=== PATIENT | female | born 1995 | race Caucasian/White ===

== ENCOUNTER 2016-06-02 13:14 | Emergency (ER) | payer OTHER ==
[~2016-06-02] VITALS: Ht 165.1 cm; Wt 65.6 kg
[~2016-06-02 13:14] MED LIST: BENADRYL50 MG PO; CLARITIN10 M1 PO; Colace PO; KLONOPIN1 M1 PO; LEXAPRO20 MG PO; LITHIUM CARBON600 MG PO; MOTRIN800 MG PO; NAPROXEN500 MG PO; NATALCARE RX1 TABLET PO; PEN-VEE K,VEET500 MG PO; PERCOCET 10/1 TABLET PO; PERCOCET 5/31 TABLET PO; PRENATAL TABLE1 EAC3 PO; PROAIR HFA8.5 GM IH; Percocet 5/325,Endoc PO; SEROQUEL50 MG PO; SINGULAIR10 MG PO; STOOL SOFTENER100 MG PO; TYLENOL WITH C1 EACH PO; ULTRAM50 MG PO; XANAX1 MG PO
[2016-06-02 14:01] LABS: HEMATOCRIT 45.4 % (36.0-46.0); MCH 27.8 PG (29.0-34.0); MCHC 33.9 G/DL (30.0-36.0); MCV 81.9 FL (83-99); MEAN PLAT.VOLUME 10.5 uM^3 (9.5-12.4); PLATELET COUNT 355 K/uL (156-360); RBC DIS.WIDTH-SD 48.2 % (39-53); RED BLOOD COUNT 5.54 M/uL (3.80-5.20); WHITE BLOOD COUNT 14.2 K/uL (4.1-10.2)
[2016-06-02 14:26] LABS: TROP-I INTERPRETATION NEGATIVE; TROPONIN-I < 0.01 ng/mL (0.0-0.30)
[2016-06-02 14:34] LABS: CHLORIDE 105 mEq/L (99-109); POTASSIUM 3.9 mEq/L (3.7-5.4); SODIUM 138 mEq/L (136-147)
[2016-06-02 14:36] LABS: GLUCOSE 96 mg/dL (70-99)
[2016-06-02 14:37] LABS: ANION GAP 20 MEQ/L (2-14)
[2016-06-02 14:38] LABS: TOTAL BILIRUBIN 0.6 mg/dL (0.0-1.0)
[2016-06-02 14:39] LABS: ALKALINE PHOSPHATASE 78 IU/L (3-129); GFR ESTIMATE (CALCULATED) > 59 mL/min/
[2016-06-02 14:41] LABS: UREA NITROGEN (BUN) 10 mg/dL (9-23)
[2016-06-02 17:52] LABS: ADD MIUA? YES; BILIRUBIN SMALL; BLOOD NEGATIVE; COLOR YELLOW ((YELLOW)); GLUCOSE (STRIP) NEGATIVE; KETONES >=80; LEUKOCYTES SMALL; NITRITE NEGATIVE; PROTEIN (STRIP) 100; SPECIFIC GRAVITY 1.031 (1.000-1.030)
[2016-06-02 18:50] LABS: BACTERIA 1+; CASTS PRESENT /LPF; CRYSTALS NONE SEEN; EPITHELIAL CELLS NONE SEEN; HYALINE CASTS 0-5 /LPF; MUCUS NONE SEEN; UCUL ADDED? NO; WHITE BLOOD CELLS 0-5 /HPF (0-5)
[2016-06-02] MEDS ORDERED: ZOFRAN ODT4 MG PO (18:58)
[2016-06-02 20:09] LABS: CHLORIDE 104 mEq/L (99-109); POTASSIUM 3.9 mEq/L (3.7-5.4); SODIUM 135 mEq/L (136-147)
[2016-06-02 20:10] LABS: GLUCOSE 70 mg/dL (70-99)
[2016-06-02 20:12] LABS: ANION GAP 16 MEQ/L (2-14)
[2016-06-02 20:14] LABS: GFR ESTIMATE (CALCULATED) > 59 mL/min/
[2016-06-02 20:15] LABS: UREA NITROGEN (BUN) 8 mg/dL (9-23)
[2016-06-02 20:30] VITALS: BP 115/68
== END 2016-06-02 20:31 | disposition left against medical advice (07) ==
LOC: EME 13:14
PROVIDERS: Physician Assistant
DX: O21.9 Vomiting of pregnancy, unspecified (principal); O99.280 Endocrine, nutritional and metabolic diseases complicating pregnancy, unspecified trimester; E86.0 Dehydration; O99.340 Other mental disorders complicating pregnancy, unspecified trimester; F41.0 Panic disorder [episodic paroxysmal anxiety]; O99.619 Diseases of the digestive system complicating pregnancy, unspecified trimester; K08.89 Other specified disorders of teeth and supporting structures; R07.9 Chest pain, unspecified; N89.8 Other specified noninflammatory disorders of vagina; O99.330 Smoking (tobacco) complicating pregnancy, unspecified trimester; F17.200 Nicotine dependence, unspecified, uncomplicated
CPT/HCPCS: 71020; 80048 91; 80053; 81003; 84484; 84702; 85027; 93005; 99281; 99284; J2405; J7120

== ENCOUNTER → 2016-06-03 | Outpatient (CLI) | payer OTHER ==
[~2016-06-03] VITALS: Ht 165.1 cm; Wt 65.6 kg
[~2016-06-03] MED LIST changes: +ZOFRAN ODT4 MG PO
[2016-06-03 17:11] VITALS: BP 112/71
== END | disposition home or self-care (01) ==
LOC: IVINF 17:00
DX: E86.0 Dehydration (principal)
CPT/HCPCS: 96360 XU; 96361; 96374 59; J2405; J7030

== ENCOUNTER 2016-10-28 16:25 | Emergency (ER) | payer OTHER ==
[~2016-10-28] VITALS: Ht 165.1 cm; Wt 69.7 kg
[2016-10-28] MEDS ORDERED: PEN-VEE K,VEET500 MG PO (16:58)
[2016-10-28] MEDS ORDERED: LIDOCAINE20 MG/1 M5 PO (16:58)
[2016-10-28 17:26] VITALS: BP 125/80
== END 2016-10-28 17:37 | disposition home or self-care (01) ==
LOC: EME 16:25
DX: O99.619 Diseases of the digestive system complicating pregnancy, unspecified trimester (principal); K02.9 Dental caries, unspecified; O99.330 Smoking (tobacco) complicating pregnancy, unspecified trimester; F17.200 Nicotine dependence, unspecified, uncomplicated; Z3A.00 Weeks of gestation of pregnancy not specified
CPT/HCPCS: 99281; 99285

== ENCOUNTER 2016-11-30 00:49 | Outpatient (CLI) | payer OTHER ==
[~2016-11-30 00:49] MED LIST changes: +LIDOCAINE20 MG/1 M5 PO
[2016-11-30 01:09] VITALS: BP 119/75
[2016-11-30] MEDS ORDERED: PRENATAL TABLE1 EAC3 PO (01:19)
[2016-11-30] MEDS ORDERED: BENADRYL50 MG PO (01:20)
[2016-11-30] MEDS ORDERED: PEN-VEE K,VEET500 MG PO (01:21)
[2016-11-30] MEDS ORDERED: LIDOCAINE20 MG/1 M5 PO (01:21)
[2016-11-30 01:34] LABS: AMPHETAMINE NEGATIVE (500 ng/mL); BARBITURATES NEGATIVE (200 ng/mL); BENZODIAZEPINES NEGATIVE (150 ng/mL); COCAINE NEGATIVE (150 ng/mL); INTERNAL CONTROLS VALID? YES; METHADONE NEGATIVE (200 ng/mL); METHAMPHETAMINE NEGATIVE (500 ng/mL); OPIATES (MORPHINE) NEGATIVE (100 ng/mL); OXYCODONE NEGATIVE (100 ng/mL); PHENCYCLIDINE NEGATIVE (25 ng/mL); PROPOXYPHENE NEGATIVE (300 ng/mL); THC CANNABINOIDS NEGATIVE (50 ng/mL); TRICYCLIC ANTIDEPRESSANTS NEGATIVE (300 ng/mL)
== END 2016-11-30 02:58 | disposition home or self-care (01) ==
LOC: LDRP-OP 00:49 → 2WEST 00:50
PROVIDERS: Nurse Practitioner
DX: O47.1 False labor at or after 37 completed weeks of gestation (principal); Z3A.39 39 weeks gestation of pregnancy
CPT/HCPCS: 59025; G0378

== ENCOUNTER 2016-12-02 15:53 | Inpatient (IN) | payer OTHER ==
[~2016-12-02] VITALS: Ht 165.1 cm; Wt 68.0 kg
[2016-12-02] VITALS (13 sets, daily range): BP systolic 101–126; BP diastolic 56–86
[2016-12-02 19:28] LABS: BASOPHIL COUNT 0.1 K/uL (0-0.1); EOSINOPHIL (%) 0.5 % (0-5); EOSINOPHIL COUNT 0.1 K/uL (0-0.3); HEMATOCRIT 36.3 % (36.0-46.0); IMMATURE GRANULOCYTE (%) 0.6 % (0.0-0.7); IMMATURE GRANULOCYTE COUNT 0.1 K/uL; INSTRUMENT ABS NEUTROPHIL CT 14.9 K/uL; LYMPHOCYTE COUNT 2.9 K/uL (1.0-2.8); MCH 26.9 PG (29.0-34.0); MCHC 31.7 G/DL (30.0-36.0); MCV 84.8 FL (83-99); MEAN PLAT.VOLUME 12.7 uM^3 (9.5-12.4); NEUTROPHIL (%) 78.5 % (45-76); NEUTROPHIL COUNT 14.9 K/uL (1.8-6.4); PLATELET COUNT 141 K/uL (156-360); RBC DIS.WIDTH-CV 14.4 % (11.8-14.6); RBC DIS.WIDTH-SD 44.8 % (39-53); RED BLOOD COUNT 4.28 M/uL (3.80-5.20)
[2016-12-02 19:28] LABS: AMPHETAMINE NEGATIVE (500 ng/mL); BARBITURATES NEGATIVE (200 ng/mL); BENZODIAZEPINES NEGATIVE (150 ng/mL); COCAINE NEGATIVE (150 ng/mL); INTERNAL CONTROLS VALID? YES; METHADONE NEGATIVE (200 ng/mL); METHAMPHETAMINE NEGATIVE (500 ng/mL); OPIATES (MORPHINE) NEGATIVE (100 ng/mL); OXYCODONE NEGATIVE (100 ng/mL); PHENCYCLIDINE NEGATIVE (25 ng/mL); PROPOXYPHENE NEGATIVE (300 ng/mL); THC CANNABINOIDS NEGATIVE (50 ng/mL); TRICYCLIC ANTIDEPRESSANTS NEGATIVE (300 ng/mL)
[2016-12-03] VITALS (10 sets, daily range): BP systolic 94–120; BP diastolic 54–80
[2016-12-03] MEDS ORDERED: MOTRIN800 MG PO (02:54)
[2016-12-05] MEDS ORDERED: PERCOCET 5/31 TABLET PO (14:24)
[2016-12-05] MEDS ORDERED: BREAST PUMP MC (14:24)
== END 2016-12-05 15:54 | disposition home or self-care (01) | DRG 775 ==
LOC: LDRP-OP 15:53 → 2WEST 15:54 → LDRP-OP 01-04 03:11
PROVIDERS: Midwife; Nurse Practitioner
PROC: 10907ZC Drainage of Amniotic Fluid, Therapeutic from Products of Conception, Via Natural or Artificial Opening (ICD-10-PCS; principal; 2016-12-02)
PROC: 00HU33Z Insertion of Infusion Device into Spinal Canal, Percutaneous Approach (ICD-10-PCS; 2016-12-03)
PROC: 3E0S3CZ (ICD-10-PCS; 2016-12-03)
PROC: 10E0XZZ Delivery of Products of Conception, External Approach (ICD-10-PCS; 2016-12-03)
DX: O99.334 Smoking (tobacco) complicating childbirth (principal); M41.9 Scoliosis, unspecified; O99.344 Other mental disorders complicating childbirth; F17.200 Nicotine dependence, unspecified, uncomplicated; O99.52 Diseases of the respiratory system complicating childbirth; O69.81X0 Labor and delivery complicated by cord around neck, without compression, not applicable or unspecified; Z3A.39 39 weeks gestation of pregnancy; Z37.0 Single live birth; O09.33 Supervision of pregnancy with insufficient antenatal care, third trimester; F41.0 Panic disorder [episodic paroxysmal anxiety]; F31.9 Bipolar disorder, unspecified; J45.909 Unspecified asthma, uncomplicated; J42 Unspecified chronic bronchitis; M54.9 Dorsalgia, unspecified; G89.29 Other chronic pain; O75.89 Other specified complications of labor and delivery; Z91.19 Patient's noncompliance with other medical treatment and regimen
CPT/HCPCS: 85025; C1755; G0378; J3010; J7120

== ENCOUNTER 2017-02-12 21:30 | Emergency (ER) | payer OTHER ==
[~2017-02-12] VITALS: Ht 165.1 cm; Wt 62.8 kg
[~2017-02-12 21:30] MED LIST changes: +BREAST PUMP MC
[2017-02-12] MEDS ORDERED: KEFLEX500 MG PO (22:52)
[2017-02-12] MEDS ORDERED: ULTRAM50 MG PO (22:52)
[2017-02-12] MEDS ORDERED: NAPROXEN500 MG PO (22:52)
[2017-02-12] MEDS ORDERED: BACTROBAN CREAM15 GM TP (22:53)
[2017-02-12 23:12] VITALS: BP 103/86
== END 2017-02-12 23:14 | disposition home or self-care (01) ==
LOC: EXP 21:30 → EME 21:30 → EXP 23:14
DX: S30.0XXA Contusion of lower back and pelvis, initial encounter (principal); Y04.2XXA Assault by strike against or bumped into by another person, initial encounter; K08.89 Other specified disorders of teeth and supporting structures; L03.115 Cellulitis of right lower limb; F17.200 Nicotine dependence, unspecified, uncomplicated
CPT/HCPCS: 99281; 99283

== ENCOUNTER 2017-03-10 14:33 | Emergency (ER) | payer OTHER ==
[~2017-03-10] VITALS: Ht 165.1 cm; Wt 65.0 kg
[~2017-03-10 14:33] MED LIST changes: +BACTROBAN CREAM15 GM TP; +KEFLEX500 MG PO
[2017-03-10] MEDS ORDERED: LIDODERM 5% P1 PATCH TD (16:02)
[2017-03-10] MEDS ORDERED: FLEXERIL10 MG PO (16:02)
[2017-03-10] MEDS ORDERED: ULTRAM50 MG PO (16:02)
[2017-03-10] MEDS ORDERED: PEN-VEE K,VEET500 MG PO (16:05)
[2017-03-10 16:10] VITALS: BP 114/87
== END 2017-03-10 16:11 | disposition home or self-care (01) ==
LOC: EME 14:33
DX: S39.012A Strain of muscle, fascia and tendon of lower back, initial encounter (principal); S30.0XXA Contusion of lower back and pelvis, initial encounter; K03.81 Cracked tooth; Y09 Assault by unspecified means; F17.200 Nicotine dependence, unspecified, uncomplicated; Z91.040 Latex allergy status
CPT/HCPCS: 72100; 99281; 99284

== ENCOUNTER 2017-04-26 09:58 | Emergency (ER) | payer OTHER ==
[~2017-04-26] VITALS: Ht 165.1 cm; Wt 69.9 kg
[~2017-04-26 09:58] MED LIST changes: +FLEXERIL10 MG PO; +LIDODERM 5% P1 PATCH TD
[2017-04-26 10:16] VITALS: BP 108/74
[2017-04-26] MEDS ORDERED: PEN-VEE K,VEET500 MG PO (11:23)
[2017-04-26] MEDS ORDERED: NAPROXEN500 MG PO (11:23)
== END 2017-04-26 12:05 | disposition home or self-care (01) ==
LOC: EME 09:58
DX: M54.5 Low back pain (principal); K08.89 Other specified disorders of teeth and supporting structures; L30.9 Dermatitis, unspecified; Z91.040 Latex allergy status; Z88.6 Allergy status to analgesic agent
CPT/HCPCS: 72100; 99281; 99284; J1100; J1885

== ENCOUNTER 2017-06-13 13:28 | Emergency (ER) | payer OTHER ==
[~2017-06-13] VITALS: Ht 165.1 cm; Wt 71.4 kg
[2017-06-13] MEDS ORDERED: ACETAMINOPHEN500 MG PO (16:38)
[2017-06-13 16:50] VITALS: BP 115/72
== END 2017-06-13 16:51 | disposition home or self-care (01) ==
LOC: EME 13:28
PROC: 2W3CX1Z Immobilization of Right Lower Arm using Splint (ICD-10-PCS; principal; 2017-06-13)
DX: S63.601A Unspecified sprain of right thumb, initial encounter (principal); S60.221A Contusion of right hand, initial encounter; W18.30XA Fall on same level, unspecified, initial encounter; F17.200 Nicotine dependence, unspecified, uncomplicated; Z88.6 Allergy status to analgesic agent; Z91.040 Latex allergy status
CPT/HCPCS: 73130; 99281; 99285

== ENCOUNTER 2017-07-23 18:54 | Emergency (ER) | payer OTHER ==
[~2017-07-23] VITALS: Ht 165.1 cm; Wt 75.8 kg
[~2017-07-23 18:54] MED LIST changes: +ACETAMINOPHEN500 MG PO
[2017-07-23] MEDS ORDERED: PEN-VEE K,VEET500 MG PO (19:19)
[2017-07-23] MEDS ORDERED: NORCO 5/3251 TABLET PO (19:19)
[2017-07-23 19:47] VITALS: BP 125/75
== END 2017-07-23 19:47 | disposition home or self-care (01) ==
LOC: EME 18:54
DX: K08.89 Other specified disorders of teeth and supporting structures (principal); L40.9 Psoriasis, unspecified; Z88.6 Allergy status to analgesic agent; Z91.040 Latex allergy status; Z91.048 Other nonmedicinal substance allergy status
CPT/HCPCS: 99281; 99283

== ENCOUNTER 2017-10-02 22:30 | Emergency (ER) | payer OTHER ==
[~2017-10-02] VITALS: Ht 165.1 cm; Wt 73.1 kg
[~2017-10-02 22:30] MED LIST changes: +NORCO 5/3251 TABLET PO
[2017-10-03 01:58] LABS: HEMATOCRIT 37.8 % (36.0-46.0); HEMOGLOBIN 12.2 G/DL (11.9-15.5); MCH 28.8 PG (29.0-34.0); MCHC 32.3 G/DL (30.0-36.0); MCV 89.2 FL (83-99); RBC DIS.WIDTH-CV 15.9 % (11.8-14.6); RBC DIS.WIDTH-SD 51.7 % (39-53); RED BLOOD COUNT 4.24 M/uL (3.80-5.20); WHITE BLOOD COUNT 13.4 K/uL (4.1-10.2)
[2017-10-03 02:06] LABS: INTER. NORMALIZED RATIO 0.9
[2017-10-03 02:08] LABS: CHLORIDE 108 mEq/L (99-109); PTT 25.6 SEC (25-37); SODIUM 137 mEq/L (136-147)
[2017-10-03 02:10] LABS: GLUCOSE 81 mg/dL (70-99)
[2017-10-03 02:11] LABS: TOTAL PROTEIN 6.4 g/dL (6.4-8.3)
[2017-10-03 02:12] LABS: TOTAL BILIRUBIN 0.3 mg/dL (0.0-1.0)
[2017-10-03 02:14] LABS: ALKALINE PHOSPHATASE 88 IU/L (3-129); CREATININE 0.7 mg/dL (0.6-1.3); GFR ESTIMATE (CALCULATED) > 59 mL/min/
[2017-10-03 02:15] LABS: UREA NITROGEN (BUN) 10 mg/dL (9-23)
[2017-10-03 02:16] LABS: AST (GOT) 9 IU/L (2-34)
[2017-10-03 02:17] LABS: ALT (GPT) 6 IU/L (3-49)
[2017-10-03 02:23] LABS: QUANTITATIVE HCG < 4.0 MIU/ML
[2017-10-03 02:54] LABS: PLAT.SUFFICIENCY ADEQUATE; PLATELET COUNT 298 K/uL (156-360)
[2017-10-03] MEDS ORDERED: NORCO 5/3251 TABLET PO (03:50)
[2017-10-03] MEDS ORDERED: AMOXICILLIN500 MG PO (03:50)
[2017-10-03 04:00] LABS: AMPHETAMINE NEGATIVE (500 ng/mL); BARBITURATES NEGATIVE (200 ng/mL); BENZODIAZEPINES NEGATIVE (150 ng/mL); BUPRENORPHINE NEGATIVE (10 ng/mL); COCAINE NEGATIVE (150 ng/mL); METHADONE NEGATIVE (200 ng/mL); METHAMPHETAMINE NEGATIVE (500 ng/mL); OPIATES (MORPHINE) NEGATIVE (100 ng/mL); OXYCODONE NEGATIVE (100 ng/mL); PHENCYCLIDINE NEGATIVE (25 ng/mL); PROPOXYPHENE NEGATIVE (300 ng/mL); THC CANNABINOIDS PRESUMPTIVE POSITIVE (50 ng/mL); TRICYCLIC ANTIDEPRESSANTS NEGATIVE (300 ng/mL)
[2017-10-03 04:31] VITALS: BP 111/65
== END 2017-10-03 05:23 | disposition home or self-care (01) ==
LOC: EME 22:30
PROVIDERS: Emergency Medicine
DX: S40.021A Contusion of right upper arm, initial encounter (principal); S02.5XXA Fracture of tooth (traumatic), initial encounter for closed fracture; M54.9 Dorsalgia, unspecified; W01.0XXA Fall on same level from slipping, tripping and stumbling without subsequent striking against object, initial encounter; F17.200 Nicotine dependence, unspecified, uncomplicated
CPT/HCPCS: 80053; 84702; 84999; 85027; 85610; 85730; 93971; 99281; 99284

== ENCOUNTER 2017-10-20 00:53 | Emergency (ER) | payer OTHER ==
[~2017-10-20] VITALS: Ht 165.1 cm; Wt 70.6 kg
[~2017-10-20 00:53] MED LIST changes: +AMOXICILLIN500 MG PO
[2017-10-20] MEDS ORDERED: ULTRAM50 MG PO (01:55)
[2017-10-20] MEDS ORDERED: PEN-VEE K,VEET500 MG PO (01:55)
[2017-10-20 02:22] VITALS: BP 123/76
== END 2017-10-20 02:22 | disposition home or self-care (01) ==
LOC: EME 00:53
DX: K08.89 Other specified disorders of teeth and supporting structures (principal); K03.81 Cracked tooth
CPT/HCPCS: 99281; 99283

== ENCOUNTER 2017-11-14 06:51 | Emergency (ER) | payer OTHER ==
[~2017-11-14] VITALS: Ht 165.1 cm; Wt 65.6 kg
[2017-11-14 07:27] LABS: HEMATOCRIT 41.1 % (36.0-46.0); HEMOGLOBIN 13.8 G/DL (11.9-15.5); MCH 28.5 PG (29.0-34.0); MCHC 33.6 G/DL (30.0-36.0); MCV 84.7 FL (83-99); PLATELET COUNT 192 K/uL (156-360); RBC DIS.WIDTH-CV 15.1 % (11.8-14.6); RBC DIS.WIDTH-SD 46.7 % (39-53); RED BLOOD COUNT 4.85 M/uL (3.80-5.20); WHITE BLOOD COUNT 15.8 K/uL (4.1-10.2)
[2017-11-14 07:47] LABS: ALBUMIN 4.3 g/dL (3.2-4.8)
[2017-11-14 07:48] LABS: CHLORIDE 98 mEq/L (99-109); SODIUM 132 mEq/L (136-147)
[2017-11-14 07:50] LABS: GLUCOSE 114 mg/dL (70-99); TOTAL PROTEIN 8.2 g/dL (6.4-8.3)
[2017-11-14 07:52] LABS: TOTAL BILIRUBIN 0.5 mg/dL (0.0-1.0)
[2017-11-14 07:53] LABS: ALKALINE PHOSPHATASE 183 IU/L (3-129)
[2017-11-14 07:54] LABS: CREATININE 0.9 mg/dL (0.6-1.3); GFR ESTIMATE (CALCULATED) > 59 mL/min/
[2017-11-14 07:55] LABS: AST (GOT) 64 IU/L (2-34)
[2017-11-14 07:56] LABS: ALT (GPT) 36 IU/L (3-49)
[2017-11-14 07:57] LABS: LIPASE 31 U/L (1.0-51.0)
[2017-11-14 08:04] LABS: QUANTITATIVE HCG < 4.0 MIU/ML
[2017-11-14 08:07] LABS: UREA NITROGEN (BUN) 13 mg/dL (9-23)
[2017-11-14 10:09] LABS: APPEARANCE SL.HAZY ((CLEAR)); BILIRUBIN NEGATIVE; BLOOD MODERATE; COLOR AMBER ((YELLOW)); GLUCOSE (STRIP) NEGATIVE; KETONES 20; LEUKOCYTES MODERATE; NITRITE POSITIVE; PROTEIN (STRIP) 100; SPECIFIC GRAVITY 1.023 (1.000-1.030)
[2017-11-14 10:23] LABS: AMPHETAMINE NEGATIVE (500 ng/mL); BARBITURATES NEGATIVE (200 ng/mL); BENZODIAZEPINES PRESUMPTIVE POSITIVE (150 ng/mL); BUPRENORPHINE PRESUMPTIVE POSITIVE (10 ng/mL); COCAINE NEGATIVE (150 ng/mL); METHADONE NEGATIVE (200 ng/mL); METHAMPHETAMINE NEGATIVE (500 ng/mL); OPIATES (MORPHINE) PRESUMPTIVE POSITIVE (100 ng/mL); OXYCODONE NEGATIVE (100 ng/mL); PHENCYCLIDINE NEGATIVE (25 ng/mL); PROPOXYPHENE NEGATIVE (300 ng/mL); THC CANNABINOIDS PRESUMPTIVE POSITIVE (50 ng/mL); TRICYCLIC ANTIDEPRESSANTS NEGATIVE (300 ng/mL)
[2017-11-14 10:30] LABS: BACTERIA 3+ /HPF; EPITHELIAL CELLS 1+ /HPF; MUCUS NONE SEEN /LPF; UCUL ADDED? YES; WHITE BLOOD CELLS TNTC /HPF (0-5)
[2017-11-14] MEDS ORDERED: KEFLEX500 MG PO (11:03)
[2017-11-14] MEDS ORDERED: NAPROSYN500 MG PO (11:03)
[2017-11-14 11:10] LABS: BENZODIAZEPINES, URINE SCREEN POSITIVE (200 ng/mL)
[2017-11-14 11:20] VITALS: BP 94/58
== END 2017-11-14 11:22 | disposition home or self-care (01) ==
LOC: EME 06:51
PROVIDERS: Nurse Practitioner Family
DX: N12 Tubulo-interstitial nephritis, not specified as acute or chronic (principal); K03.81 Cracked tooth; F19.10 Other psychoactive substance abuse, uncomplicated; F17.200 Nicotine dependence, unspecified, uncomplicated; F32.9 Major depressive disorder, single episode, unspecified; F41.9 Anxiety disorder, unspecified; Z88.6 Allergy status to analgesic agent; Z91.040 Latex allergy status
CPT/HCPCS: 80053; 81003; 83690; 84702; 84999; 85027; 87077; 87086; 87186; 99281; 99285; J0696; J1630; J1885; J7030

== ENCOUNTER 2017-12-29 14:35 | Emergency (ER) | payer OTHER ==
[~2017-12-29] VITALS: Ht 165.1 cm; Wt 75.2 kg
[~2017-12-29 14:35] MED LIST changes: +NAPROSYN500 MG PO
[2017-12-29] MEDS ORDERED: FLEXERIL10 MG PO (16:40)
[2017-12-29] MEDS ORDERED: MOBIC7.5 MG PO (16:40)
[2017-12-29 16:55] LABS: APPEARANCE SL.HAZY ((CLEAR)); BILIRUBIN NEGATIVE; BLOOD NEGATIVE; COLOR YELLOW ((YELLOW)); GLUCOSE (STRIP) NEGATIVE; KETONES NEGATIVE; LEUKOCYTES NEGATIVE; NITRITE NEGATIVE; PROTEIN (STRIP) NEGATIVE; SPECIFIC GRAVITY 1.021 (1.000-1.030); UROBILINOGEN 0.2 MG/DL (0.2-1.0)
[2017-12-29 16:59] LABS: BACTERIA RARE /HPF; EPITHELIAL CELLS 1+ /HPF; MUCUS TRACE /LPF; RED BLOOD CELLS 0-5 /HPF (0-5); WHITE BLOOD CELLS 0-5 /HPF (0-5)
[2017-12-29 17:50] VITALS: BP 151/96
== END 2017-12-29 17:50 | disposition home or self-care (01) ==
LOC: EME 14:35
PROVIDERS: Nurse Practitioner Family
DX: S30.1XXA Contusion of abdominal wall, initial encounter (principal); S43.402A Unspecified sprain of left shoulder joint, initial encounter; S30.0XXA Contusion of lower back and pelvis, initial encounter; Y04.8XXA Assault by other bodily force, initial encounter; Y93.01 Activity, walking, marching and hiking; Y07.9 Unspecified perpetrator of maltreatment and neglect; J45.909 Unspecified asthma, uncomplicated; F32.9 Major depressive disorder, single episode, unspecified; F41.9 Anxiety disorder, unspecified; F31.9 Bipolar disorder, unspecified; F17.200 Nicotine dependence, unspecified, uncomplicated; Z88.6 Allergy status to analgesic agent; Z91.040 Latex allergy status
CPT/HCPCS: 72100; 73030; 81003; 84702; 99281; 99284; J1885